=== PATIENT | male | born 1955 | race Caucasian/White ===

== ENCOUNTER 2016-07-23 14:24 | Outpatient (RCR) | payer BC ==
[~2016-07-23 14:24] MED LIST: AML5T PO; ASPI-586 PO; ATOR10TA PO; CA C1TAB26 PO; CETI10CA PO; FEXO180T84 PO; GLIM1TAB PO; GLUC-113 PO; LISI1TAB10 PO; MELO-249 PO; METF1000 PO; MULT-221 PO; NIAC500T2 PO; OMEP20TA PO; OMG1KC PO; PRED20TA PO; TAMS0.4C2 PO
== END 2016-08-18 17:10 | disposition home or self-care (01) ==
LOC: DT 14:24
PROVIDERS: ATTEND Family Medicine
DX: E11.9 Type 2 diabetes mellitus without complications (principal)
CPT/HCPCS: 97802